=== PATIENT | female | born 1975 | race Caucasian/White ===

== ENCOUNTER 2023-07-06 20:44 | Outpatient (REF) | payer OTHER, SELFPAY ==
[2023-07-11 13:07] LABS: Age Gdln ACOG Testing Note (.); HPV Aptima Negative (Negative); IGP, Aptima HPV, rfx 16/18,45 Note (.)
== END 2023-07-06 20:45 | disposition home or self-care (01) ==
LOC: LAB 20:44
PROVIDERS: Visit Provider Obstetrics & Gynecology
DX: Z01.419 Encounter for gynecological examination (general) (routine) without abnormal findings (principal)
CPT/HCPCS: 87624; G0145

== ENCOUNTER 2024-08-21 20:03 | Outpatient (REF) | payer OTHER, SELFPAY ==
--- OUTSIDE RECORDS SUMMARY | 2024-08-21 14:00 | XMS_ITS | Encounter Summary ---
Author Organization [facility] Address [address] [facility] [place] [address] Care Team Providers Care Clean Out Driller Helper Name Role Phone Carlos Shepherd Agustin ROSALES Primary Care Provider [phone] Reason for Visit * Reason Comments Gynecologic Exam Encounter Details Date Type Department Care Team (Late st Contact Info) Description 08/21/2024 2:00 PM EDT Office Visit [facility] [address] [facility] [phone] Gala Torrez PA [address] [facility] [address] [place], [facility]11 Well woman exam with routine gynecological exam; Breast cancer screening by mammogram Social History Tobacco Use Types Packs/Day Years Used Date Smoking Tobacco: Never Assessed Comments No Sex and Gender Information Value Date Recorded Sex Assigned at Not on file Legal Sex Female 6:35 PM EDT Gender Identity Not on file Sexual Orientation Not on file documented as of this encounter Last Filed Vital Signs Vital Sign Reading Time Taken Comments Blood Pressure 122/74 08/21/2024 2:41 PM EDT Pulse - - Temperature - - Respiratory Rate - - Oxygen Saturation - - Inhaled Oxygen Concentration - - Weight 86.6 kg (191 lb) 08/21/2024 2:41 PM EDT Height - - Body Mass Index 34.93 06/22/2022 12:00 PM EDT documented in this encounter Progress Notes * SRIDHAR Metz - 08/21/2024 2:00 PM EDT Reason for Appointment: Patient ID: June Arik is a 49 y.o. female who presents for Gynecologic Exam Patient presents today for Annual Exam. MEDICATIONS Current Outpatient Medications Medication Instructions cholecalciferol (Vitamin D-3) 25 MCG (1000 UT) capsule Vitamin D3 ferrous sulfate 325 (65 Fe) MG tablet Every 24 hours Magnesium 300 MG capsule Every 24 hours Omeprazole 20 MG Tablet Delayed Release Dispersible Omeprazole ALLERGIES Allergies Allergen Reactions Promethazine Anxiety and Hives Topiramate Other PROBLEMS Active Ambulatory Problems Diagnosis Date Noted No Active Ambulatory Problems Resolved Ambulatory Problems Diagnosis Date Noted No Resolved Ambulatory Problems No Additional Past Medical History HISTORY PAST MEDICAL HISTORY SOCIAL HISTORY No past medical history on file. Social History Tobacco Use Smoking status: Not on file Smokeless tobacco: Not on file Substance Use Topics Alcohol use: Not on file Drug use: Not on file FAMILY HISTORY No family history on file. SURGICAL HISTORY History reviewed. No pertinent surgical history. REVIEW OF SYSTEMS Review of Systems: Review of Systems Constitutional: Negative. HENT: Negative. Eyes: Negative. Respiratory: Negative. Cardiovascular: Negative. Gastrointestinal: Negative. Genitourinary: Negative. Musculoskeletal: Negative. Skin: Negative. Neurological: Negative. All other systems reviewed and are negative. Hematological: Negative. Endocrine: Negative. Allergic/Immunologic: Negative. OBJECTIVE Objective: Physical Exam Constitutional: Appearance: Normal appearance. She is well-developed. Genitourinary: Vulva normal. Right Adnexa: not tender and no mass present. Left Adnexa: not tender and no mass present. No cervical discharge. Breasts: Breasts are soft. Right: Normal. Left: Normal. HENT: Head: Normocephalic. Nose: Nose normal. Mouth/Throat: Mouth: Mucous membranes are moist. Cardiovascular: Rate and Rhythm: Normal rate and regular rhythm. Pulmonary: Effort: Pulmonary effort is normal. Breath sounds: Normal breath sounds. Abdominal: General: Bowel sounds are normal. There is no distension. Palpations: Abdomen is soft. Tenderness: There is no abdominal tenderness. There is no guarding or rebound. Musculoskeletal: General: No swelling. Normal range of motion. Cervical back: Normal range of motion. Right lower leg: No edema. Left lower leg: No edema. Neurological: General: No focal deficit present. Mental Status: She is alert and oriented to person, place, and time. Skin: General: Skin is warm and dry. Psychiatric: Mood and Affect: Mood normal. Behavior: Behavior normal. Vitals and nursing note reviewed. Exam conducted with a stonework tracer present. Vitals: Estimated body mass index is 31.09 kg/m?? as calculated from the following: Height as of 06/22/22: 5' 2 . Weight as of 07/06/23: 170 lb. BP: No LMP recorded. ASSESSMENT & PLAN ICD-10-CM 1. Well woman exam with routine gynecological exam Z01.419 THIN PREP TIS PAP AND HR HPV DNA 2. Breast cancer screening by mammogram Z12.31 Bilateral screening mammogram Bilateral screening mammogram Annual: Patient presents today for an annual exam. Patient states she is doing well and has no complaints. Pap was obtained without difficulty and patient given mammogram order to have scheduled/obtained. Pthas been having issues with bleeding/periods. Pt does not desires ablation or IUD. Pt would like something for weight loss. Ozempic through [facility] was discussed. Pt will come back for weight loss appointment. Orders Placed This Encounter Procedures Bilateral screening mammogram Follow Up: Patient is to return in one year for annual unless needed otherwise. Documented by Katherine Don MA on behalf of: SRIDHAR Metz documented in this encounter Plan of Treatment Upcoming Encounters Date Type Department Care Team (Late st Contact Info) Description 09/11/2024 3:30 PM EDT Office Visit [facility] [address] [facility] [place] [address] Gala Torrez PA [address] [place] [address] 08/28/2025 2:00 PM EDT Office Visit [facility] [address] [facility] [place] [phone] Gala Torrez PA [address] [place] [address] Scheduled Orders Name Type Priority Associated Diagnoses Orde r Schedule Bilateral screening mammogram Imaging Routine Breast cancer screening by mammogram Expected: 08/21/2024 (Approximate), Expires: 10/21/2025 THIN PREP TIS PAP AND HR HPV DNA Pathology and Cytology Routine Well woman exam with routine gynecological exam Ordered: 08/21/2024 documented as of this encounter Visit Diagnoses Diagnosis Well woman exam with routine gynecological exam Routine gynecological examination Breast cancer screening by mammogram documented in this encounter Care Teams Clean Out Driller Helper Relationship Specialty Start Date End Date Carlos Shepherd DO PCP - General Family Medicine 07/06/23 documented as of this encounter
--- OUTSIDE RECORDS SUMMARY | 2024-08-21 20:07 | XMS_ITS | Clinical Summary ---
Author Organization [facility] Address [address] [place] [address] Phone Care Team Providers Care Radiopharmacist Name Role Phone Unavailable Primary Care Provider Unavailabl e Social History Tobacco Use Types Packs/Day Years Used Date Smoking Tobacco: Never Assessed Comments Unknown Sex and Gender Information Value Date Recorded Sex Assigned at Not on file Legal Sex Female 12:28 PM EST Gender Identity Not on file Sexual Orientation Not on file Plan of Treatment Not on file
--- OUTSIDE RECORDS SUMMARY | 2024-08-21 20:07 | XMS_ITS | Clinical Summary ---
Author Organization [facility] Address [address] [place] [address] Care Team Providers Care Professor Of Business Name Role Phone Carlos Shepherd Agustin ROSALES Primary Care Provider [phone] Allergies Active Allergy Reactions Criticality Noted Date Comments Promethazine Anxiety,Hives Low 05/19/2023 Topiramate Other Low 05/19/2023 Medications Magnesium 300 MG capsule 1 (one) time each day at the same time Active ferrous sulfate 325 (65 Fe) MG tablet 1 (one) time each day at the same time Active Omeprazole 20 MG Tablet Delayed Release Dispersible Omeprazole Active cholecalciferol (Vitamin D-3) 25 MCG (1000 UT) capsule Vitamin D3 Active semaglutide (Ozempic, 0.25 or 0.5 MG/DOSE,) 2 MG/1.5ML solution pen-injector 08/22/19 25 Discontin ued(Thera py completed ) Encounters Date Type Department Care Team Description 08/21/2024 2:00 PM EDT Office Visit [facility] [address] [place] [address] Gala Torrez PA Well woman exam with routine gynecological exam; Breast cancer screening by mammogram 08/21/2024 Bamboo flowsheet [facility] [place] [address] [place] [address] Gala Torrez PA 08/21/2024 Travel 07/04/2024 Orders Only [facility] [place] [address] [place] [address] Brittany Mccauley LPN from Last 3 Months Social History Tobacco Use Types Packs/Day Years Used Date Smoking Tobacco: Never Assessed Comments No Sex and Gender Information Value Date Recorded Sex Assigned at Not on file Legal Sex Female 6:35 PM EDT Gender Identity Not on file Sexual Orientation Not on file Last Filed Vital Signs Vital Sign Reading Time Taken Comments Blood Pressure 122/74 08/21/2024 2:41 PM EDT Pulse - - Temperature - - Respiratory Rate - - Oxygen Saturation - - Inhaled Oxygen Concentration - - Weight 86.6 kg (191 lb) 08/21/2024 2:41 PM EDT Height 157.5 cm (5' 2 ) 06/22/2022 12:00 PM EDT Body Mass Index 34.93 06/22/2022 12:00 PM EDT Plan of Treatment Upcoming Encounters Date Type Department Care Team (Late st Contact Info) Description 09/11/2024 3:30 PM EDT Office Visit [facility] [address] [facility] [place] [phone] Gala Torrez PA [address] [place] [address] [place] [address] 08/28/2025 2:00 PM EDT Office Visit [facility] OB [address] [place], [place] [address] [place] [phone] Gala Torrez PA [address] [facility] [place] [address] Health Maintenance Due Date Last Done Comments CT Colonography 1977 Colonoscopy 1977 Colorectal Cancer Screening 1977 FIT-DNA 1977 FIT 1977 FOBT 1977 Sigmoidoscopy 1977 Mammogram 07/20/2024 07/21/2023, 07/13/2022 Influenza Vaccine (Season Ended) 2024 12/17/19, 01/12/2019 Pap Smear 07/05/2026 07/06/2023, 06/22/2022 Cervical Cancer Screening 06/23/2027 HPV/Cotest 06/23/2027 Procedures Procedure Name Priority Date/Time Associated Diagnosis Comments BI MAMMOGRAM SCREENING BILATERAL Routine 07/21/2023 4:13 PM EDT Encounter for screening mammogram for malignant neoplasm of breast PAP SMEAR Routine 07/06/2023 12:00 AM EDT from Last 3 Months or Most Recently Relevant to Health Maintenance Results * Bilateral screening mammogram (07/21/2023 4:13 PM EDT) us Rizwan Ciara DO IMG BI PROCEDURES Final Result [facility] [address] [place] [address], * Pap Smear (07/06/2023 12:00 AM EDT) Swab Cervical swab / Unknown us [facility] Ciara Nurse LAB CYTOLOGY ORDERABLES Final Result EXTERNAL LAB from Last 3 Months or Most Recently Relevant to Health Maintenance Insurance [facility] Care Teams Professor Of Business Relationship Specialty Start Date End Date Carlos Shepherd DO PCP - General Family Medicine 07/06/23
--- OUTSIDE RECORDS SUMMARY | 2024-08-21 20:07 | XMS_ITS | Encounter Summary ---
Author Organization [facility] Address [address] [place] [address] Care Team Providers Care School Inspector Name Role Phone Carlos Shepherd Primary Care Provider [phone] Encounter Details Date Type Department Care Team (Late st Contact Info) Description 08/21/2024 Bamboo flowsheet [facility] OB [address] [facility] [place] [address] Gala Torrez PA [address] [place] [address] [place], [place] [address] Social History Tobacco Use Types Packs/Day Years Used Date Smoking Tobacco: Never Assessed Comments No Sex and Gender Information Value Date Recorded Sex Assigned at Not on file Legal Sex Female 6:35 PM EDT Gender Identity Not on file Sexual Orientation Not on file documented as of this encounter Plan of Treatment Upcoming Encounters Date Type Department Care Team (Late st Contact Info) Description 09/11/2024 3:30 PM EDT Office Visit [facility] OB [address] [facility] [place] [address] Gala Torrez PA [address] [place] [address] Dr [place], [facility]11 08/28/2025 2:00 PM EDT Office Visit [facility] OB [address] [place], [place] [address] [place] [address] Gala Torrez PA [address] [place] [address] [place] [address] documented as of this encounter Visit Diagnoses Not on filedocumented in this encounter Care Teams School Inspector Relationship Specialty Start Date End Date Carlos Shepherd DO PCP - General Family Medicine 07/06/23 documented as of this encounter
--- OUTSIDE RECORDS SUMMARY | 2024-08-21 20:08 | XMS_ITS | Encounter Summary ---
Author Organization [facility] Address [address] [place] [address] Care Team Providers Care Leather Stretcher Name Role Phone Carlos Shepherd Agustin ROSALES Primary Care Provider [phone] Encounter Details Date Type Department Care Team (Late st Contact Info) Description 07/04/2024 Orders Only [facility] [address] [facility] [place] [address] Brittany Mccauley LPN [address] [facility]11 Social History Tobacco Use Types Packs/Day Years [...] 09/11/2024 3:30 PM EDT Office Visit [facility] OB [address] [facility] [address] Gala Torrez PA [facility] [address] [place], [facility]11 08/28/2025 2:00 PM EDT Office Visit [facility] OB [address] [facility] [address] Gala Torrez PA [address] [facility] [place] [address] documented as of this encounter Procedures Procedure Name Priority Date/Time Associated Diagnosis Comments PAP SMEAR Routine 07/06/2023 12:00 AM EDT documented in this encounter Results * Pap Smear (07/06/2023 12:00 AM EDT) Swab Cervical swab / Unknown us [facility] Ciara Nurse LAB CYTOLOGY ORDERABLES Final Result EXTERNAL LAB documented in this encounter Visit Diagnoses Not on filedocumented in this encounter Care Teams Leather Stretcher Relationship Specialty Start Date End Date Carlos Shepherd DO PCP - General Family Medicine 07/06/23 documented as of this encounter
--- OUTSIDE RECORDS SUMMARY | 2024-08-21 20:08 | XMS_ITS | Encounter Summary ---
Author Organization [facility] Address [address] [facility] [place] [address] Care Team Providers Care Complaint Manager Name Role Phone Carlos Shepherd DO Primary Care Provider [phone] Encounter Details Date Type Department Care Team (Latest Contact Info) Description 08/21/2024 Travel Social History Tobacco Use Types Packs/Day Years [...] 09/11/2024 3:30 PM EDT Office Visit [facility] OB [address] [facility] [address] Gala Torrez PA [address] [place] [address] [place], [email or web address] 08/28/2025 2:00 PM EDT Office Visit [facility] OB [address] [facility] [address] Gala Torrez PA [address] [facility] [address] [place], [email or web address] documented as of this encounter Visit Diagnoses Not on filedocumented in this encounter Care Teams Complaint Manager Relationship Specialty Start Date End Date Carlos Shepherd DO PCP - General Family Medicine 07/06/23 documented as of this encounter
--- OUTSIDE RECORDS SUMMARY | 2024-08-21 20:08 | XMS_ITS | Clinical Summary ---
Author Organization [facility] Address [id number] [address] [place] [address] Care Team Providers Care Vitreo Retinal Surgeon Name Role Phone Unavailable Primary Care Provider Unavailabl e Social History Tobacco Use Types Packs/Day Years Used Date Smoking Tobacco: Never Assessed Childcare Answer Date Recorded Childcare Unknown 03/07/2020 Employment Answer Date Recorded Employment Unknown 03/07/2020 Purpose - Life Answer Date Recorded Purpose and direction in life Unknown Comments Unknown Sex and Gender Information Value Date Recorded Sex Assigned at Not on file Legal Sex Female 11:57 AM EDT Gender Identity Not on file Sexual Orientation Not on file Plan of Treatment Health Maintenance Due Date Last Done Comments Depression Screening 1989 Tobacco Screening 1989 Adult BMI Screening 05/18/1995 DTaP,Tdap and Td Vaccines (1 - Tdap) 1996 Pap Smear 1998 Influenza Vaccine 11/06/2024 Medical Devices Not on file
[2024-08-25 13:08] LABS: Age Gdln ACOG Testing Note (.); HPV Aptima Negative (Negative); IGP, Aptima HPV, rfx 16/18,45 Note (.)
== END 2024-08-21 20:04 | disposition home or self-care (01) ==
LOC: LAB 20:03
PROVIDERS: Visit Provider Physician Assistant
DX: Z01.419 Encounter for gynecological examination (general) (routine) without abnormal findings (principal)
CPT/HCPCS: 87624; 88175